=== PATIENT | female | born 1955 | race African-American/Black ===

== ENCOUNTER 2016-12-03 12:08 | Emergency (ER) | payer MEDICARE, OTHER ==
[~2016-12-03] VITALS: Ht 162.6 cm; Wt 141.2 kg
[~2016-12-03 12:08] MED LIST: ALBU8I INH; GABA300C3 PO; HYCO5UDC PO; PRED50TA PO; SYMB80AE INH
[2016-12-03 12:20] VITALS: BP 138/74; PULSE 82; RESP 16; TEMP 96.9; O2SAT 98
--- NOTE | 2016-12-03 12:28 | PD ---
HPI Chief Complaint: Cold / Flu Symptoms Time Seen by Provider: 12:27 Travel History International Travel<30 days: No Contact w/Intl Traveler<30days: No Traveled to known affect area: No History of Present Illness HPI 61-year-old Afro[place] female presents the emergency department with 3 week history of off and on the upper respiratory congestion, postnasal drip, runny nose, sore throat, wheezing, and increased productive cough. Patient denies significant fever or chills. She denies nausea, vomiting, or heartburn. Patient denies chest pain. Patient does have sarcoidosis for which she uses Pulmicort, and albuterol nebulizers as well as metered-dose inhaler. Patient has been using Tessalon Perles with some relief of symptoms have continued and gradually worsened in the last week. Patient states the cough is productive with increasingly purulent sputum. Patient has increased shortness of breath with exertion due to wheezing. She has no increased edema in the lower extremities. She has no known drug allergies. PFSH Past Medical History Asthma: Yes Cardiovascular Problems: Yes (hx of htn takes no meds) Diminished Hearing: No Implanted Vascular Access Dvce: Yes (LOOP RECORDER) Respiratory: Yes (copd) Immunizations Current: Yes ?: Not Menopausal: Yes Past Surgical History Cholecystectomy: Yes Hysterectomy: Yes Social History Alcohol Use: No Tobacco Use: No Substance Use: No Allergies-Medications (Allergen,Severity, Reaction): Coded Allergies: No Known Allergies (Unverified , 12/03/16) Reported Meds & Prescriptions Reported Meds & Active Scripts Active Flonase Nasal [place] (Fluticasone Nasal [place]) 50 Mcg/Act [place] 100 Mcg EACH NARE BID Prednisone 20 Mg Tab 20 Mg PO BID Tessalon Perles (Benzonatate) 100 Mg Cap 100 Mg PO TID PRN Amoxicillin 875 Mg Tab 875 Mg PO BID 10 Days Reported Tessalon Perles (Benzonatate) 100 Mg Cap 100 Mg PO TID PRN Flonase Nasal [place] (Fluticasone Nasal [place]) 50 Mcg/Act [place] 50 Mcg EACH NARE BID Claritin (Loratadine) 10 Mg Cap 10 Mg PO DAILY Lortab (Hydrocodone-Acetaminophen) 10-325 Mg Tab 1 Tab PO Q4H PRN Wellbutrin Xl 24 HR (Bupropion HCl) 150 Mg Tab 150 Mg PO DAILY Albuterol Neb (Albuterol Sulfate) 0.63 Mg/3 Ml Neb 0.63 Mg NEB Q4HR NEB PRN Flovent Hfa 10.6 GM Inh (Fluticasone Propionate) 44 Mcg/Act Inh 2 Puff INH DAILY Use daily at the same time. Symbicort Inh (Budesonide/Formoterol Fumarate) 80-4.5 Mcg/Act Aero 2 Puff INH Q12HR Review of Systems Except as stated in HPI: all other systems reviewed are Neg General / Constitutional: No: Fever, Chills Eyes: No: Visual changes HENT: Positive: Headaches, Sore Throat, Rhinitis, Rhinorrhea, Congestion, No: Nosebleed, Neck Stiffness, Neck Pain, Ear Discharge, Earache Cardiovascular: No: Chest Pain or Discomfort Respiratory: Positive: Cough, Shortness of Breath, Wheezing, No: Sneezing, Orthopnea, Pleuritic Pain Gastrointestinal: No: Nausea, Vomiting, Diarrhea, Abdominal Pain Genitourinary: No: Dysuria Musculoskeletal: No: Pain Skin: No Rash Neurologic: No: Weakness Psychiatric: No: Depression Endocrine: No: Polydipsia Hematologic/Lymphatic: No: Easy Bruising Physical Exam Narrative GENERAL: Patient appears in no acute distress. She is speaking full sentences. SKIN: Warm and dry. Color. Normal turgor. HEAD: Atraumatic. Normocephalic. Patient has moderate maxillary sinus tenderness more on the right than the left. EYES: Pupils equal and round. No scleral icterus. No injection or drainage. ENT: No nasal bleeding or discharge. Mucous membranes erythematous, boggy and moist. Posterior pharynx is somewhat erythematous with cobblestoning and postnasal drip noted. No significant lymphadenopathy. Airway is patent. Uvula is midline. TMs are dull bilaterally but no injection. NECK: Trachea midline. Supple nontender. CARDIOVASCULAR: Regular rate and rhythm. RESPIRATORY: No accessory muscle use. Mild diffuse wheezes and and inspiration to auscultation. Breath sounds equal bilaterally. No rales or rhonchi. GASTROINTESTINAL: Abdomen soft, non-tender, nondistended. Hepatic and splenic margins not palpable. MUSCULOSKELETAL: Extremities without clubbing, cyanosis, or edema. No obvious deformities. NEUROLOGICAL: Awake and alert. No obvious cranial nerve deficits. Motor grossly within normal limits. Five out of 5 muscle strength in the arms and legs. Normal speech. PSYCHIATRIC: Appropriate mood and affect; insight and judgment normal. Data Data Last Documented VS Vital Signs Date Time Temp Pulse Resp B/P (MAP) Pulse Ox O2 Delivery O2 Flow Rate FiO2 12/03/16 12:20 96.9 82 16 138/74 (95) [facility] Medical Decision Making Medical Screen Exam Complete: Yes Emergency Medical Condition: Yes Medical Record Reviewed: Yes Differential Diagnosis Sinusitis. Postnasal drip. Reactive airway disease. Sarcoidosis. Bronchitis. Wheezing. Narrative Course Radiographic imaging is not felt warranted based on the patient's physical exam. Patient is treated with amoxicillin 875 twice a day 10 days. Patient is given prednisone 20 mg twice a day 7 days. Patient is given referral Flonase nasal spray 2 sprays each nostril daily #1. Patient given Tessalon Perles 100 mg one every 8 hours when necessary #30. Patient is continue her nebulizer and Pulmicort as previously prescribed. Patient should follow with her primary care physician in one week to ensure improvement or return sooner with worsening symptoms. Diagnosis Primary Impression: Acute wheezy bronchitis Additional Impressions: Sinusitis, acute maxillary Qualified Codes: J01.00 - Acute maxillary sinusitis, unspecified Post-nasal drip Referrals: Primary Care Physician Patient Instructions: Acute Bronchitis (ED), General Instructions, How to Use a Nebulizer (DC), Sinusitis (ED) Additional Instructions: Radiographic imaging is not felt warranted based on the patient's physical exam. Patient is treated with amoxicillin 875 twice a day 10 days. Patient is given prednisone 20 mg twice a day 7 days. Patient is given referral Flonase nasal spray 2 sprays each nostril daily #1. Patient given Tessalon Perles 100 mg one every 8 hours when necessary #30. Patient is continue her nebulizer and Pulmicort as previously prescribed. Patient should follow with her primary care physician in one week to ensure improvement or return sooner with worsening symptoms. Scripts Fluticasone Nasal [place] (Flonase Nasal [place]) 50 Mcg/Act [place] 100 MCG EACH NARE BID for Allergies, #1 BOTTLE 0 Refills Prov: Анна Hogue MD 12/03/16 Prednisone (Prednisone) 20 Mg Tab 20 MG PO BID, #14 TAB 0 Refills Prov: Анна Hogue MD 12/03/16 Benzonatate (Tessalon Perles) 100 Mg Cap 100 MG PO TID Y for COUGH, #30 CAP 0 Refills Prov: Анна Hogue MD 12/03/16 Amoxicillin (Amoxicillin) 875 Mg Tab 875 MG PO BID for Infection for 10 Days, #20 TAB 0 Refills Prov: Анна Hogue MD 12/03/16 Disposition: 01 DISCHARGE HOME Condition: Stable Gaston Ng Dec 03, 2016 12:28
[2016-12-03] MEDS ORDERED: FLUTI44I INH (12:37)
[2016-12-03] MEDS ORDERED: SYMB80AE INH (12:37)
[2016-12-03] MEDS ORDERED: HYDR-3535 PO (12:37)
[2016-12-03] MEDS ORDERED: BUPR150XL PO (12:37)
[2016-12-03] MEDS ORDERED: FLUT1SPR5 EACH NARE ×2 (12:37→12:40)
[2016-12-03] MEDS ORDERED: ALBU0.63 NEB (12:37)
[2016-12-03] MEDS ORDERED: BENZ100 PO ×2 (12:37→12:40)
[2016-12-03] MEDS ORDERED: CLAR10CA3 PO (12:37)
[2016-12-03] MEDS ORDERED: AMOX875T PO (12:40)
[2016-12-03] MEDS ORDERED: PRED20 PO (12:40)
== END 2016-12-03 13:07 | disposition home or self-care (01) ==
LOC: PHEFT 12:08
DX: J44.0 Chronic obstructive pulmonary disease with (acute) lower respiratory infection (principal); J20.9 Acute bronchitis, unspecified; J01.00 Acute maxillary sinusitis, unspecified
CPT/HCPCS: 99284

== ENCOUNTER → 2017-03-01 | Outpatient (CLI) | payer MEDICARE, OTHER ==
[~2017-03-01] MED LIST changes: +ALBU0.63 NEB; -ALBU8I INH; +AMOX875T PO; +BENZ100 PO; +BUPR150XL PO; +CLAR10CA3 PO; +FLUT1SPR5 EACH NARE; +FLUTI44I INH; -GABA300C3 PO; -HYCO5UDC PO; +HYDR-3535 PO; +PRED20 PO; -PRED50TA PO
--- NOTE | 2017-03-01 14:00 | RADRPT ---
EXAM DATE/TIME: 03/01/2017 12:20 [facility] COMPARISON: CHEST PA & LAT, March 15, 2015, 6:14. INDICATIONS : Short of breath. Asthma. MEDICAL HISTORY : Asthma. Sarcoidosis. SURGICAL HISTORY : Loop recorder. ENCOUNTER: Initial ACUITY: 1 week PAIN SCORE: 0/10 LOCATION: Bilateral chest FINDINGS: PA and lateral views of the chest demonstrate the lungs to be symmetrically aerated without evidence of mass, infiltrate or effusion. Interstitial prominence is evident in the lungs. The cardiomediastin al contours are unremarkable. Osseous structures are intact. CONCLUSION: 1. Chronic interstitial lung changes. 2. No evidence of consolidating airspace disease or significant congestion. Alex Bass MD on March 01, 2017 at 13:57 Board Certified Radiologist. This report was verified electronically.
--- NOTE | 2017-03-13 10:13 | RSPPFT ---
DATE OF PROCEDURE: 03/01/17 COMMENTS: Spirometry demonstrates an FEV1 of 1.3 at 57% of predicted, FVC of 2.0 at 67%, FEF 25-75 at 32% of predicted. Post-bronchodilator study demonstrated significant improvements. Lung volumes demonstrated a raised RV/TLC ratio indicating hyperinflation with air trapping. Diffusion capacity is moderately reduced. Flow volume loops suggest an obstructive pattern. IMPRESSION: 1. Moderate obstructive disease. 2. Significant response to use of bronchodilator indicating reversibility. 3. Additional mild restrictive disease. 4. Moderate loss in diffusion capacity.
== END ==
LOC: HRSP 10:42
DX: J45.909 Unspecified asthma, uncomplicated (principal); E66.9 Obesity, unspecified; I10 Essential (primary) hypertension; G47.33 Obstructive sleep apnea (adult) (pediatric)
CPT/HCPCS: 71020; 94060; 94726; 94729